=== PATIENT | female | born 1995 | race African-American/Black ===

== ENCOUNTER 2021-01-31 13:23 | Outpatient (CLI) | payer OTHER ==
[~2021-01-31] VITALS: Ht 165.1 cm; Wt 116.1 kg
[2021-01-31 13:48] VITALS: BP 94/58
--- NOTE | 2021-01-31 14:00 | IPNPDOC ---
Text Note Date of Service The patient was seen on 01/31/21. NOTE TRIAGE EVALUATION HPI: Mrs. Yeny Johnson is a 25yo at 40w0d ega, by LMP c/w 1st trimester ultrasound, with PNC c/b GBS Positive, Obesity, Hypothyroidism and Headaches who presents for rule-out labor. Mrs. Johnson reports the onset of irregular CTXs that have increased in intensity such that she is tari q3-7 minutes. Denies LOF, or VB. + FM. PMH: - Negative PSH: - Breast Reduction - WTE MED'S: - Vitamins - Folic acid ALL: - NKDA - No allergies to Latex or Iodine OBH: - G1: (2008) T- at 40wks ega, 7lbs 2oz - G2: (2015) T- at 40wks ega, 8lbs 9oz - G3: (2020) current PHYSICAL EXAMINATION: Vitals: Normotensive, afebrile Gen: AAox3, NAD Abd: Gravid uterine, NTTP : Normal appearing external female genitalia SVE: 5/70/0 (13:40) Limited Ultrasound: SDP - 5.97cm NST: Baseline - 140bpm, moderate variability, + accelerations, - decelerations TOCO: Uterine Irritability with 1 contraction ASSESSMENT: 25yo at 40w0d ega who presents for rule-out labor and was found to be 5cm dilated with a reactive NST and adequate SDP. (Of note, the patient was 5cm at her MARY appointment on Monday, 29 January 2021) The patient was offered membrane sweeping and elected to proceed. PLAN: - The couple were instructed to engage in sexual intercourse - Return precautions reviewed - Pt to follow-up at previously scheduled MARY appointment. - IOL scheduled for Monday, 07 February 2021 - All questions answered Brenda Skelton., Ph.D. [employer] OB-CHAIN PERSON Staff Physician JHON BURKS M.D. Jan 31, 2021 14:00
[2021-01-31] MEDS ORDERED: FOLI400T5 PO (14:34)
[2021-01-31] MEDS ORDERED: PRENTAB9 PO (14:34)
[2021-01-31] MEDS ORDERED: ACET-907 PO (14:34)
== END 2021-01-31 15:01 | disposition home or self-care (01) ==
LOC: M LDO 13:23
PROVIDERS: ATTEND Obstetrics & Gynecology Reproductive Endocrinology
DX: O47.1 False labor at or after 37 completed weeks of gestation (principal); Z3A.40 40 weeks gestation of pregnancy; O48.0 Post-term pregnancy; O99.820 Streptococcus B carrier state complicating pregnancy; R51.9 Headache, unspecified; O99.283 Endocrine, nutritional and metabolic diseases complicating pregnancy, third trimester; E03.9 Hypothyroidism, unspecified; O99.213 Obesity complicating pregnancy, third trimester; E66.9 Obesity, unspecified
CPT/HCPCS: 59025; G0378; G0463

== ENCOUNTER 2021-01-31 22:38 | Inpatient (IN) | payer OTHER ==
[~2021-01-31] VITALS: Ht 165.1 cm; Wt 116.3 kg
[~2021-01-31 22:38] MED LIST: ACET-907 PO; FOLI400T5 PO; PRENTAB9 PO
[2021-01-31 22:48] VITALS: BP 113/74
[2021-01-31] MEDS ORDERED: PENICILLIN G POTASSIUM IV 5 MU in D5W MINI-BAG PLUS 100 ML IV STA (23:27)
[2021-01-31] MEDS ORDERED: LIDOCAINE 1% MDV 20ML VIAL INFIL PRN (23:30)
[2021-01-31] MEDS ORDERED: METHYLERGONOVINE MALEATE 0.2 MG/ML VIAL (J2210) IM PRN (23:30)
[2021-01-31] MEDS ORDERED: OXYTOCIN INJ 10 UNITS/ML VIAL (J2590) IM PRN (23:30)
[2021-01-31] MEDS ORDERED: OXYTOCIN DRIP 30 UNITS in IV 1 EA IV PRN ×6 (23:30)
[2021-01-31] MEDS ORDERED: LR 1,000 ML IV SCH (23:30)
[2021-01-31] MEDS ORDERED: CARBOPROST TROMETHAMINE 250 MCG/ML AMP IM PRN (23:30)
[2021-01-31] MEDS ORDERED: OXYTOCIN INJ 10 UNITS/ML VIAL (J2590) IV PRN (23:30)
[2021-01-31] MEDS ORDERED: TRANEXAMIC ACID INJection 1,000 MG in NS 100 ML IV PRN (23:30)
[2021-02-01] VITALS (13 sets, daily range): BP systolic 111–147; BP diastolic 57–72
--- NOTE | 2021-02-01 00:09 | HPEPDOC ---
Obstetrical History & Physical General Date of Admission Jan 31, 2021 at 22:38 History of Present Illness Mrs. Yeny Johnson is a 25yo at 40w0d ega, by LMP c/w 1st trimester ultrasound, with PNC c/b GBS positive, Obesity, Hypothyroidism, and Headaches who presents to rule-out labor. Mrs. Johnson reports the onset of uterine contractions this morning that have increased in intensity & frequency such that she is tari every 5-minutes. Denies LOF, VB. Endorses FM. Chief Complaint: Contractions, term Information Provided By: Patient Age: 25 : 3 Term: 2 Pre-term: 0 Abortions: 0 Livin Care Care: Good Care Number of Visits: 9 Dating Final EDC: Jan 31, 2021 Final EDC for Daily Update: Jan 31, 2021 Final EDC by: LMP, 1st trimester (US) LMP: Apr 26, 2020 Weeks + Days: 40 Estimated Date of Confinement: Jan 31, 2021 EGA at Admission: 40 Antepartum Course Diagnos(e)s GBS Positive Obesity Headaches Hypothyroidism Height (inches): 65 Pre- weight (lbs.): 245 Past Medical History Past Obstetrical History : Past Obstetrical History: Multigravida Gestation: 40 Type of Delivery: Spontaneous Vaginal Del. Weight of (grams): 3400 Complications: No CYTOGENETIC TECHNICIAN History: No pertinent history Past Medical History Surgical History: Breast reduction, [place] teeth Family History Significant Family History: No pertinent family hx Social History Marital Status: Family situation: Spouse/partner home Psychosocial History: No pertinent psych hx * Smoker: non-smoker Alcohol: Denies Drugs: denies Abuse Violence Screening Have you been hit/kicked/slapp: No Have you been sexually assault: No Imunizations Tdap status: current Influenza Status: current Allergies Coded Allergies: No Known Allergies (Unverified , 01/31/21) Medications Scheduled Folic Acid (Folic Acid) 0.4 Mg Tablet, 1 TAB PO DAILY No.137/Iron/Folic Acd ( Vitamin Tablet) 1 Each Tablet, 1 TAB PO DAILY Miscellaneous Medications Acetaminophen (Tylenol) 325 Mg Tablet, 1,000 MG PO Physical Examination Physical Examination GENERAL: Alert and oriented times three. ABDOMEN: Gravid and non-tender to touch. FETUS: Is vertex (VTX) by sterile vaginal examination (SVE) HEART RATE: Regular rate and rhythm. LUNGS: Clear to auscultation (CTA). EXTREMITIES: No edema. Laboratory Data 24H LABS Laboratory Tests 2 01/31/21 22:46: Serology Scanned Report Hepatitis B Testing Pertinent Laboratoy Data Blood Type: B+ RBC Antibody Screen: Negative HIV: Negative Hepatitis B: Negative Hepatitis C: Negative Rapid Plasma Reagin: Nonreactive Rubella: Immune Chlamydia/Gonorrhea: Negative Group B Streptococcus: Positive Cystic Fibrosis: Negative Glucose Tolerance Test: 100 Anatomy Ultrasound Ultrasound Date: Nov 23, 2020 Placenta Location: Posterior Normal Anatomy: Yes Placenta Previa: No Estimated Weight (grams): 1665 Steroid Therapy Steroid Therapy: No Vaginal Examination Dilation: 5 cm Effacement: 70% Station: -1, 0 Cervical Consistency: Soft Cervical Position: Posterior Presentation: Cephalic presentation Assessment Heart Rate (FHR): 125 Variability: Moderate Accelerations: Positive Decelerations: None Tocometer Contractions: Yes Frequency: irregular Assessment/Plan Assessment Mrs. Yeny Johnson is a 25yo at 40w0d ega who presents in early active labor with regular uterine contractions at 5cm dilation. Plan Admit and orient. Slackline Operator and consent. Diet: Clear liquid. Group B Streptococcus (GBS) positive. - 5-million units Penicillin iv now, then - 2.5-million units Penicillin iv q4-hours until delivery Labs and intravenous (IV) per unit protocol. Counseled on Pitocin and augmentation of labor (IOL). - No interventions until pt is s/p 4-hours of Penicillin Lactated Ringers (LR): Bolus 1000mL, then at 125mL/hr. Anticipate normal spontaneous delivery (). C-S as appropriate. JHON BURKS M.D. Feb 01, 2021 00:09
[2021-02-01 00:14] LABS: HEMATOCRIT 34.9 % (36.0-47.0); HEMOGLOBIN 11.3 g/dl (12.0-15.5); MEAN CORPUSCULAR HEMOGLOBIN 27.6 pg (27.0-33.0); MEAN CORPUSCULAR HGB CONC 32.4 g/dl (32.0-36.5); MEAN CORPUSCULAR VOLUME 85.1 fl (80.0-96.0); PLATELET COUNT, AUTOMATED 323 10^3/uL (150-450); WHITE BLOOD COUNT 11.9 10^3/uL (4.0-10.0)
[2021-02-01] MEDS ORDERED: PENICILLIN G POTASSIUM IV 2.5 MU in IV 1 EA IV SCH (04:00)
[2021-02-01] MEDS ORDERED: OXYTOCIN DRIP 30 UNITS in IV 1 EA IV SCH (04:15)
--- NOTE | 2021-02-01 04:19 | IPNPDOC ---
Obstetrical Progress Note Date of Service Feb 01, 2021 Subjective Mrs. Yeny Johnson is a 25yo at 40w1d ega, by LMP c/w 1st trimester ultrasound, with PNC c/b GBS positive, Obesity, Hypothyroidism, and Headaches admitted in Early Active Labor. Patient is comfortable with irregular contraction. Penicillin in now considered complete. Objective Vital Signs Date Time Temp Pulse Resp B/P (MAP) Pulse Ox O2 Delivery O2 Flow Rate FiO2 02/01/21 03:17 119/60 (79) 02/01/21 02:17 97.4 88 16 Room Air Assessment Heart Rate (FHR): 130 Variability: Moderate Accelerations: Positive Decelerations: None Heart Rate Tracing: Category I Tocometer Contractions: Yes Frequency: irregular Sterile Vaginal Examination Dilation: 5 cm Effacement (%): 70% Station: -1, 0 Cervical Consistency: Soft Cervical Position: Posterior Postion/Presentation: Cephalic presentation Assessment and Plan Age: 25 : 3 Term: 2 Pre-term: 0 Abortions: 0 Livin EGA at Admission: 40 Weeks & Days 40w1d Status: Reassuring Group B Streptococcus: Positive Anticipate: Vaginal Delivery Additional Comments - Patient is now s/p 4-hours of Penicillin and unchanged from previous examination - Start Pitocin, and titrate to effect - Will repeat SVE 4-hours after the start of Pitocin, or as clinically indicated. Brenda Skelton., Ph.D. [employer] OB-DOBBY LOOM FIXER Staff JHON BURKS M.D. Feb 01, 2021 04:19
--- NOTE | 2021-02-01 06:42 | IPNPDOC ---
Obstetrical Progress Note Date of Service Feb 01, 2021 Subjective Mrs. Yeny Johnson is a 25yo at 40w1d ega, by LMP c/w 1st trimester ultrasound, with PNC c/b GBS positive, Obesity, Hypothyroidism, and Headaches admitted in Early Active Labor. Patient is uncomfortable with regular, q2-3 minute contractions without Pitocin. SROM around 06:00. Clear fluid. Objective Vital Signs Date Time Temp Pulse Resp B/P (MAP) Pulse Ox O2 Delivery O2 Flow Rate FiO2 02/01/21 06:02 88 117/66 (83) 02/01/21 02:17 97.4 16 Room Air Assessment Heart Rate (FHR): 130 Variability: Moderate Accelerations: Positive Decelerations: None Heart Rate Tracing: Category I Tocometer Contractions: Yes Frequency: regular, every 1-3 min. Sterile Vaginal Examination Dilation: 8 cm Effacement (%): 100% Station: -1, 0 Cervical Consistency: Soft Cervical Position: Middle Postion/Presentation: Cephalic presentation Assessment and Plan Age: 25 : 3 Term: 2 Pre-term: 0 Abortions: 0 Livin EGA at Admission: 40 Weeks & Days 40w1d Status: Reassuring Group B Streptococcus: Positive Anticipate: Vaginal Delivery Additional Comments - Will repeat SVE in 2-hours, or as clinically indicated - Anticipate Brenda Skelton., Ph.D. JO[employer] & OB-HYDROCHLORIC ACID OPERATOR Staff Physician JHON BURKS M.D. Feb 01, 2021 06:42
[2021-02-01] MEDS ORDERED: IBUPROFEN 600MG TAB PO PRN (08:30)
[2021-02-01] MEDS ORDERED: ACETAMINOPHEN TAB 650MG DOSE (2X325MG) PO PRN (08:30)
[2021-02-01] MEDS ORDERED: DIBUCAINE 1% OINTMENT 30GM TOP PRN (08:30)
[2021-02-01] MEDS ORDERED: PROMETHAZINE 25 MG TAB PO PRN (08:30)
[2021-02-01] MEDS ORDERED: METHYLERGONOVINE MALEATE 0.2 MG TAB PO PRN (08:30)
--- NOTE | 2021-02-01 10:18 | DNPDOC ---
[facility] Delivery Note Delivery Note Date of the procedure: 31 JAN 2021 Preoperative diagnosis: 1. 25 y/o at 40w1d 2. Active labor 3. GBS positive 4. B positive 5. Obesity 6. Hypothyroid, no medications Postoperative diagnosis: 1. 25 y/o G3 now P3003 at 40w1d 2. Active labor 3. GBS positive 4. B positive 5. Obesity 6. Hypothyroid, no medications Procedure: Delivering Provider: GREER Hernandez CNM, [facility] Electric Wheelchair Repairer Back-up: Dr. Evaristo Calvillo Anesthesia: Epidural EBL: 200 ml Specimens: None Findings: Live female infant weighing 9 lb 1 oz, 4120 grams with Apgars of 6 and 9 at 1 and 5 minutes respectively. Complications: None Details of the procedure: The patient presented complaining of contractions and was found to be in active labor. Patient was 5 cm dilated and was then admitted to L&D. Labor progressed with Pitocin and membranes were ruptured spontaneously for clear fluid.. The patient progressed to fully dilated and entered the second stage of labor, at which point she began to push over an intact perineum. The head was then delivered. The nuchal cord was not noted. The rest of the was delivered. The infant was placed on maternal abdomen and the cord was doubly clamped and cut. Cord blood was not collected and a 3 vessel cord was noted. Manual exploration of the uterus was not performed. Uterine tone was firm. Perineum was inspected and no laceration was found. Cervical exam was normal. Rectal exam was not noted. Sponge, instrument, and needle counts were correct. The patient tolerated the procedure well and is stable in recovery. Note was written and electronically signed by: GREER Hernandez CNM, [facility] ALIX GOFF CNM Feb 01, 2021 08:22
[2021-02-01] MEDS: PRENATAL VITAMINS CHEWABLE TABLET PO SCH (12:31)
[2021-02-01] MEDS: ACETAMINOPHEN 500 MG TAB PO PRN ×2 (12:32→20:01)
[2021-02-01] MEDS: IBUPROFEN 800 MG TAB PO PRN (17:43)
[2021-02-01] MEDS: DOCUSATE SODIUM 100MG CAPSULE PO SCH (20:01)
[2021-02-02] MEDS: ACETAMINOPHEN 500 MG TAB PO PRN ×2 (04:47→14:23)
[2021-02-02 06:00] VITALS: BP 101/57
[2021-02-02 06:49] LABS: HEMATOCRIT 31.2 % (36.0-47.0); HEMOGLOBIN 10.1 g/dl (12.0-15.5); MEAN CORPUSCULAR HEMOGLOBIN 27.7 pg (27.0-33.0); MEAN CORPUSCULAR HGB CONC 32.4 g/dl (32.0-36.5); MEAN CORPUSCULAR VOLUME 85.7 fl (80.0-96.0); PLATELET COUNT, AUTOMATED 290 10^3/uL (150-450); RED BLOOD COUNT 3.64 10^6/uL (4.00-5.40); WHITE BLOOD COUNT 13.7 10^3/uL (4.0-10.0)
--- NOTE | 2021-02-02 07:21 | IPNPDOC ---
Progress Note Date of Service: Feb 02, 2021 Progress Note Ms. Johnson is 25 yo G3 now P3 who underwent an uncomplicated yesterday after being admitted for active labor. No acute events overnight. She reports feeling well this morning other than experiencing some back pain. She has a K pad which is somewhat helping. She is ambulating and voiding without issues. Lochia is minimal. She is tolerating a regular diet. Vitals - VSS, afebrile, normotensive, non tachycardic. General - AAOX3, sitting up in bed, NAD Abdomen - Fundus firm at U-2. No fundal tenderness Extremities - No edema Ms. Johnson is doing well and is making an appropriate recovery. Continue routine care. Anticipate DC home tomorrow. Rajinder. VS, I&O, 24H, [place]isha Vital Signs/I&O Vital Signs Date Time Temp Pulse Resp B/P (MAP) Pulse Ox O2 Delivery O2 Flow Rate FiO2 02/02/21 06:00 97.6 74 18 101/57 (72) 99 Room Air I&O- Last 24 Hours up to 6 AM 02/02/21 06:00 Intake Total 500 ml Output Total 575 ml Balance -75 ml Laboratory Data 24H LABS Laboratory Tests 2 02/02/21 06:32: Nucleated Red Blood Cells % (auto) 0.0 CBC/BMP Laboratory Tests 02/02/21 06:32 LAURA CARVAJAL DO Feb 02, 2021 07:21
[2021-02-02] MEDS: DOCUSATE SODIUM 100MG CAPSULE PO SCH ×2 (08:45→20:37)
[2021-02-02] MEDS: PRENATAL VITAMINS CHEWABLE TABLET PO SCH (08:45)
[2021-02-02] MEDS: IBUPROFEN 800 MG TAB PO PRN ×2 (08:45→19:16)
[2021-02-02 17:56] VITALS: BP 113/60
[2021-02-03] MEDS: ACETAMINOPHEN 500 MG TAB PO PRN (05:55)
[2021-02-03 06:00] VITALS: BP 145/56
[2021-02-03] MEDS ORDERED: DOK1CAP7 PO (07:02)
[2021-02-03] MEDS ORDERED: IBUP-1022 PO (07:02)
[2021-02-03] MEDS ORDERED: DIBU28OI2 TOP (07:02)
[2021-02-03] MEDS: DOCUSATE SODIUM 100MG CAPSULE PO SCH (08:41)
[2021-02-03] MEDS: IBUPROFEN 800 MG TAB PO PRN (08:42)
[2021-02-03] MEDS: PRENATAL VITAMINS CHEWABLE TABLET PO SCH (09:05)
--- NOTE | 2021-02-03 09:16 | DSES ---
"DISCHARGE SUMMARY DATE OF ADMISSION: 01/31/2021 DATE OF DISCHARGE: 02/03/2021 BRIEF HISTORY: This lady is a 25-year-old 3, now para 3, admitted with contractions at 40 weeks of gestation, spontaneous vaginal delivery, female weighing 9 pounds 1ounce (4120 grams), Apgars 6 and 9 at 1 and [address]. Risk factors; GBS positive, hypothyroid and obesity. On her second day, we discussed phlebitis, cystitis, mastitis, endometritis and cellulitis, diet, exercise, pain management, perineal, breast and wound care. Her admitting hemoglobin 11.3, hematocrit 34.9 and platelets 324,000. Day #2 hemoglobin 10.1, hematocrit 31.2 and platelets 290,000. On discharge, blood pressure 145/56, respirations 20, pulse 72, temperature 97.7. PHYSICAL EXAMINATION ON DISCHARGE: The rest of the examination was unremarkable. Normocephalic, atraumatic. Neck full range of motion. Pupils equal and reactive to light. Distal pulses symmetric. No evidence of DVT, PE or superficial phlebitis. Chest is clear bilaterally to bases. No wheezes or rhonchi. No CVA tenderness. Abdomen soft. Four quadrant bowel sounds are noted. Uterus two below. Lochia is moderate. Perineum is intact. No rashes, lesions |or pruritis. No arthralgia or myalgia. No complaint of joint pain. No complaint of cough, wheeze, shortness of breath or dyspnea on exertion. No nausea, vomiting, diarrhea or constipation. No urgency or frequency. SUMMARY: I have a term gestation, delivered a live female . Plans are for picking up her meds at [facility]. A six week checkup at [facility]. All questions are answered. 20 minute discussion. Patient was discharged improved."
== END 2021-02-03 13:12 | disposition home or self-care (01) | DRG 807 ==
LOC: M LDI 22:38 → M OBS 02-01 12:00
PROVIDERS: ADMIT Obstetrics & Gynecology Reproductive Endocrinology; ATTEND Registered Nurse Maternal Newborn
PROC: 10E0XZZ Delivery of Products of Conception, External Approach (ICD-10-PCS; principal; 2021-02-01)
DX: O48.0 Post-term pregnancy (principal); Z37.0 Single live birth; Z3A.40 40 weeks gestation of pregnancy; O99.214 Obesity complicating childbirth; E66.9 Obesity, unspecified; O99.824 Streptococcus B carrier state complicating childbirth; O99.284 Endocrine, nutritional and metabolic diseases complicating childbirth; E03.9 Hypothyroidism, unspecified